=== PATIENT | male | born 1955 | race Caucasian/White ===

== ENCOUNTER 2016-11-20 14:10 | Observation (INO) | payer OTHER ==
[~2016-11-20] VITALS: Ht 180.3 cm; Wt 126.0 kg
[~2016-11-20 14:10] MED LIST: ASPI-973 PO; CITA20TA PO; DICL50TA5 PO; LISI2.5T PO; METF500T4 PO; NAPR250T5 PO
[2016-11-20 14:14] VITALS: BP 144/79; PULSE 84; RESP 18; O2SAT 98
--- NOTE | 2016-11-20 14:24 | ED.REPORT ---
HPI-Chest Pain 40 and Over Date of Service Nov 20, 2016 ED Provider: Douglas Blair Patient is a 61 year old male with a hx of DM and HTN who presents to the ED complaining of epigastric pain onset this morning. His pain radiates to his L chest and LUQ. Associated symptoms include diarrhea this morning. He denies hematemesis, hematochezia, melena, or any other symptoms. He takes metformin, lisinopril, celexa, and 81mg ASA. Pt denies a hx of MO or indigestion. Nursing Notes Stated Complaint: LEFT SIDE PAIN Chief Complaint: Chest Pain Nursing Notes Reviewed: Yes Allergies: Coded Allergies: No Known Allergies (Unverified Allergy, Unknown, 02/04/14) Scheduled Aspirin (Aspirin) 81 Mg Tablet 81 MG PO DAILY Citalopram Hydrobromide (Celexa) 20 Mg Tablet 20 MG PO DAILY Diclofenac Potassium (Diclofenac Potassium) 50 Mg Tablet 50 MG PO BIDWM Lisinopril (Lisinopril) 2.5 Mg Tablet 2.5 MG PO DAILY Metformin (Metformin) 500 Mg Tablet 500 MG PO BID Scheduled PRN Naproxen (Naproxen) 250 Mg Tablet 250 MG PO BID PRN PRN For Pain General Time Seen by MD: 14:23 Chief Complaint Other (Epigastric pain ) Hx Obtained From: Patient Arrived By: Walk-in Sudden in Onset?: Yes Onset Occurred: 5 - 8 hours ago Symptom Duration: Since onset Location: : Epigastric Quality: Aching, Painful Migration/Movement: Reports: Chest to abdomen Severity: Current: Moderate Severity: Maximum: Moderate Recent Healthcare: Recent doctor visit Similar Sx Previous: No Risk Factors )( CAD Risk Stratification Diabetes mellitus HypertensionNo Known CAD, No Smoking Risk factors reviewed )( TAD Risk Stratification HypertensionNo Risk factors reviewed )( PE Risk Stratification No , No , No Previous DVT, No Previous PE Risk factors reviewed Past Medical History 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 Physical Exam Initial Vital Signs Vital Signs (First) Date Time Temp Pulse Resp B/P Pulse Ox O2 Delivery O2 Flow Rate FiO2 11/20/16 14:14 36.4 84 18 144/79 98 Room Air Initial VS: Reviewed, Vital signs normal Head / Eyes: Atraumatic, Normocephalic Neck: Full range of motion Skin: Warm, Dry Neurologic: Alert, Oriented, Nonfocal Psychiatric: Mood/affect normal, Behavior normal, Normal thought content General/Constitutional: Awake, Alert Distress / Hydration: Positive: Distress moderate Respiratory / Chest: Atraumatic, Breath sounds NL, Breath sounds = bilat, No respiratory distress Cardiovascular: Heart rate NL, Regular rhythm, Heart sounds NL 2+ DP pulses Abdomen: Atraumatic, Soft, Non-tender Interpretation & Diagnostics Lab Results Interpretation Result Diagram: 11/20/16 1445 Test 11/20/16 14:45 11/20/16 14:55 White Blood Count 10.5th/mm3 (3.8-10.1) Red Blood Count 4.74mil/mm3 (4.40-5.80) Hemoglobin 12.9g/dL (13.8-17.2) Hematocrit 38.8% (41.0-50.0) Mean Corpuscular Volume 81.9fL (81-100) Mean Corpuscular Hemoglobin 27.2pg (27.0-35.0) Mean Corpuscular Hemoglobin Concent 33.2% (32.0-37.0) Red Cell Distribution Width 13.6% (12.3-15.4) Platelet Count 310bil/L (150-400) Neutrophils (%) (Auto) 68.1% (40-74) Lymphocytes (%) (Auto) 17.8% (14-46) Monocytes (%) (Auto) 9.8% (4-12) Eosinophils (%) (Auto) 3.5% (0-5) Basophils (%) (Auto) 0.5% (0-3) Hold Hussein Top Tube Received (Received) Hold Urine Received (Received) ECG Interpretation ECG Interpretation: Sinus rate 73 RBBB and LAFB Time: 14:31 Interpreted by: ED physician Discharge & Departure Shift Change Sign-Out Patient Care Transferred: Yes Discussed Complaint(s): Yes Laboratory Evaluation: Ordered, not yet done Imaging Studies: Ordered, not yet done Transfer of care to Dr. Martinez at 1500 Primary Impression: Epigastric pain Discharge Condition All VS Reviewed: Yes Condition: Stable Referrals: Osmin Johnson MD (PCP) Care Transferred to: Dr. Martinez Care Transferred at: 15:00 Scribe Attestation Portions of this note were transcribed by Windy Lopez. I, Dr. Blair personally performed the history, physical exam and medical decision-making; I reviewed and confirmed the accuracy of the information in the transcribed note. Signed by: Francisco J Pemberton, 11/20/16 copies to: Osmin Johnson MD, Timothy S DO Nov 20, 2016 14:24 WINDY LOPEZ Nov 20, 2016 14:31
[2016-11-20] MEDS ORDERED: Ondansetron 2 mg/mL 2 mL Inj IVPUSH ONE (14:30)
[2016-11-20] MEDS ORDERED: LidocaineVisc 2%:Antacid 1:1 10 mL Syringe PO ONE (14:30)
[2016-11-20 15:02] LABS: BASOPHILS % (AUTO) 0.5 % (0-3); EOSINOPHILS % (AUTO) 3.5 % (0-5); MONOCYTES % (AUTO) 9.8 % (4-12); Mean Corpuscular Hemoglobin 27.2 pg (27.0-35.0); Mean Corpuscular Volume 81.9 fL (81-100); NEUTROPHILS % (AUTO) 68.1 % (40-74); Platelet Count 310 bil/L (150-400)
[2016-11-20 15:34] LABS: Magnesium 1.8 mg/dL (1.6-2.6)
[2016-11-20 15:38] LABS: TROPONIN T < 0.010 ug/L (0.0-0.011)
--- NOTE | 2016-11-20 15:53 | DRSVH ---
PROCEDURE: X-RAY CHEST ONE VIEW, PORTABLE ([id number]) INDICATIONS: epigastric pain TECHNIQUE: One view of the chest was acquired. COMPARISON: [facility], , CHEST 1VW (PORTABLE), 02/04/2014, 14:03. FINDINGS: Surgical changes and devices: Monitoring leads are seen overlying the chest. Lungs and pleura: An incomplete inspiratory result is noted, causing a crowded appearance to the fadumo g markings. No focal infiltrates are seen. No pneumothorax or significant pleural effusions are see n. Mediastinum: Mediastinal contours appear normal. Heart size is normal. Bones and chest wall: Age-appropriate bony degenerative changes are seen. No suspicious bony lesion s. Overlying soft tissues appear unremarkable. IMPRESSION: Portable chest within normal limits. Dictated by: Quincy Virgen M.D. on 11/20/2016 at 15:50 Approved by: Quincy Virgen M.D. on 11/20/2016 at 15:52
[2016-11-20 17:18] VITALS: BP 141/67; PULSE 77; RESP 17; O2SAT 98
[2016-11-20] MEDS ORDERED: Atropine 1 mg/10 mL (Code) Syringe IVPUSH PRN (19:25)
[2016-11-20] MEDS ORDERED: Senna-Docusate 8.6-50 mg Tablet PO PRN (19:25)
[2016-11-20] MEDS ORDERED: Magnesium Sulf 2 Gm/50mL Water 2 GM in IV Premix 1 EACH IV ONE (19:25)
[2016-11-20] MEDS ORDERED: Polyethylene Glycol (PEG) 17 Gm Powder PO PRN (19:25)
[2016-11-20] MEDS ORDERED: Alum-Mag Hydrox-Simeth 30 mL Suspension PO PRN (19:25)
[2016-11-20] MEDS ORDERED: Ondansetron 2 mg/mL 2 mL Inj IVPUSH PRN (19:25)
[2016-11-20 20:06] LABS: TROPONIN T < 0.010 ug/L (0.0-0.011)
[2016-11-20] MEDS ORDERED: Focus Factor PO (20:24)
[2016-11-20] MEDS ORDERED: MULT-666 PO (20:24)
--- NOTE | 2016-11-20 20:28 | PCM.HPMED ---
Subjective Date of Service Nov 20, 2016 Primary Provider: Admitting Physician: Primary Care Physician: Christopher Hanley DO Attending Physician: Admit Status: From the Emergency Department, 23-Hour Observation Chief Complaint: Chest pain. . 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 The patient reports that around 9 AM this morning he began to experience left-sided chest pain and indigestion. Of note, his PCP recently increased his metformin the day before. He reports that the chest pain is located substernally and does not radiate to his jaw, neck, upper extremities, or back. He has never had this before. He denies nausea, vomiting, shortness of breath, diaphoresis, lightheadedness or dizziness. He does endorse headache. He reports he had one episode of diarrhea today which is not normal for him. He states that he just did not feel well overall. He denies sore throat, cough, shortness of breath, current chest pain, nausea, vomiting, fever, chills, night sweats, dysuria or constipation. He has no other complaints at this time. Vital signs in the ER: Temperature 36.4. Pulse 84. Respiratory rate 18. Blood pressure 144/79. Pulse ox 98% room air. He received GI cocktail 1 and aspirin 243 mg 1 in the ED. PCP is Dr. Christopher Hanley. . Review of Systems: A comprehensive review of systems was conducted with the patient and found to be negative except as above in the History of Present Illness. . Allergies Coded Allergies: No Known Allergies (Unverified Allergy, Unknown, 02/04/14) Home Medications Aspirin 81 mg daily. Citalopram 20 mg daily. Lisinopril 2.5 mg daily. Metformin 1000 mg twice a day ( recently increased yesterday by PCP from 500 mg to 1000 mg twice daily). Multivitamin 1 tablet daily. Focus factor supplement. Recently started on a statin yesterday by PCP unknown dosage. PMH 1. 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 2. Osteoarthritis. 3. Diabetes mellitus type II, non-insulin using. 4. Hypertension. 5. Depression. 6. History of MRSA. . Surgical History 1. Sinus surgery. . Family History Mother who has dementia but is otherwise healthy. Father with CV disease and from an MS in his 80's. He has two sisters. One half sister with fibromyalgia and CVA and another sister with thyroid disease but is otherwise healthy. . Social History Hx Alcohol Use: No Hx Substance Use: No Smoking Status: Former Smoker (1 ppd x 10 years, quit 1996) Additional Information He is x 4 years. He is previously . He has two daughters who are healthy. He is currently retired. 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 . Exam Vital Signs Vital Sign - Last Date Time Temp Pulse Resp B/P Pulse Ox O2 Delivery O2 Flow Rate FiO2 11/20/16 17:18 77 17 141/67 98 Room Air 11/20/16 14:14 36.4 Exam General: Middle-aged gentleman lying in bed and in no acute distress, well- developed, well-nourished, appropriately interactive. HEENT: Normocephalic, atraumatic. External ears without defect. Pupils equal, round, and reactive to light. Anicteric sclerae, moist conjunctivae, and no lid lag. Oropharynx free of erythema and cobble stoning with moist mucosa. Neck: Supple with full range of motion. No jugular venous distension. No bruits. No lymphadenopathy or thyromegaly. Cardiovascular: Regular rate and rhythm without murmurs, rubs, or gallops appreciated Pulmonary: Clear to auscultation bilaterally without crackles, wheezes, or rhonchi. Normal respiratory effort with no use of accessory muscles. Abdomen: Soft, nontender, nondistended, bowel sounds present. No hepatosplenomegaly or masses appreciated. Extremities: No clubbing, cyanosis, or edema. Skin: Normal temperature, turgor, and texture; no rash, ulcers, or subcutaneous nodules appreciated. Neurological: Cranial nerves grossly intact. Normal muscle strength, tone, and bulk. Reflexes, coordination, and sensory function within normal limits. No known gait impairment. Psychiatric: Normal mood and affect. Alert and oriented to person, place, and time. . Lab and Diagnostics Labs Item Value Date Time Calcium Level 9.2 mg/dL 11/20/16 1445 Magnesium Level 1.8 mg/dL 11/20/16 1445 Total Bilirubin 0.5 mg/dL 11/20/16 1445 Aspartate Amino Transf (AST/SGOT) 22 U/L 11/20/16 1445 Alanine Aminotransferase (ALT/SGPT) 22 U/L 11/20/16 1445 Alkaline Phosphatase 52 U/L 11/20/16 1445 Troponin T < 0.010 ug/L 11/20/16 1445 Pro-B-Type Natriuretic Peptide 80.61 pg/mL 11/20/16 1445 Total Protein 6.9 g/dL 11/20/16 1445 Albumin 4.0 g/dL 11/20/16 1445 Lipase 34 U/L 11/20/16 1445 Result Diagram: 11/20/16 1445 11/20/16 144 X-Rays, CTs and MRIs X-RAY CHEST ONE VIEW, PORTABLE IMPRESSION: Portable chest within normal limits. Dictated by: Quincy Virgen M.D. on 11/20/2016 at 15:50 . 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 1. Acute chest pain, present on admission. Active. - The patient presented with left-sided substernal chest pain at rest without radiation, nausea, vomiting, diaphoresis, shortness of breath, lightheadedness or dizziness. - Differential diagnosis includes acute coronary syndrome versus indigestion secondary to metformin versus NSAID induced gastroenteritis. - Cardiac risk factors include: Hypertension, hyperlipidemia, diabetes mellitus type II, obesity, former smoker, and family history. - EKG demonstrated right bundle branch block and left anterior fascicular block without change from previous EKG. - Initial troponin < 0.010. Monitor serial troponin 3. - Chest x-ray did not demonstrate any acute cardiopulmonary process, as above. - Continue aspirin 81 mg daily, lisinopril 2.5 mg daily and atorvastatin 40 mg daily at bedtime. - Fasting lipid panel ordered for tomorrow morning. - Ordered exercise stress test with echocardiogram. Chronic problems: 2. Hypertension, present on admission. Stable. - Continue lisinopril 2.5 mg daily. 3. Hyperlipidemia, present on admission. Stable. - Patient reports that he has recently started on a statin. - Continue atorvastatin 40 daily at bedtime 4. Diabetes mellitus type II, non-insulin using, present on admission. Stable. - Hemoglobin A1c pending. - Order low-dose correctional scale insulin. - Ordered heart healthy/carbohydrate consistent diet. - Held metformin during hospitalization. May restart at time of discharge. 5. Depression, present on admission. Stable. - Continue citalopram 20 mg daily. 6. History of MRSA infection. - Ordered nasal MRSA swab. - If positive for MRSA colonization will need to be treated with mupirocin intranasally twice a day. PRN antiemetics: Zofran and Maalox. PRN bowel regimen: Senna and MiraLAX. PRN analgesics: Tylenol. Patient is admitted under observation status with expected length of stay less than 2 midnights due to severity of presenting symptoms, risk of adverse event, and complexity of treatment plan. . VTE Prophylaxis: Sub-Q Heparin (Unfractionated) Resuscitation Status: DNR/DNI:Do Not Resuscitate/Intubate Attending Statement The patient was seen and examined together with Dr. Marr on 11/20 and I agree with the history, exam and plan as outlined in the note above. copies to: Christopher Hanley Georgia M DO Nov 20, 2016 19:31 Valentino Ortiz MD Nov 20, 2016 21:13
[2016-11-20 20:40] VITALS: BP 158/75; PULSE 81; RESP 18; O2SAT 98
[2016-11-20] MEDS: 0.9% Sodium Chloride 1,000 ML IV SCH (21:14)
--- NOTE | 2016-11-20 21:29 | NUR ---
Admit nurse note Admission assessment completed in the ER. Pt. denies complaints at present. His pain has resolved. NKA verified, med history obtained based on pt. report. Pt. states his A-1C was 10 recently so his metformin was doubled and he began a vegetarian diet yesterday. Pt. high risk for sleep apnea so oximetry is placed. SCD's placed per order. PT. has hx MRSA, untreated, so contact precautions will be initiated and notified to order MRSA swab. Report given to Julieta Rasmussen.
[2016-11-20 21:37] LABS: Creatine Kinase 128 U/L (21-232)
[2016-11-20] MEDS: Sodium Chloride LOK Flush 10 mL Syringe IVFLUSH SCH (23:40)
[2016-11-21] MEDS: Heparin 5,000 Unit/mL Inj SUBQ SCH ×2 (00:21→08:31)
[2016-11-21 00:40] VITALS: BP 128/60; PULSE 80; RESP 18; O2SAT 96
[2016-11-21 02:57] LABS: BASOPHILS % (AUTO) 0.3 % (0-3); EOSINOPHILS % (AUTO) 3.5 % (0-5); MONOCYTES % (AUTO) 12.1 % (4-12); Mean Corpuscular Hemoglobin 27.2 pg (27.0-35.0); NEUTROPHILS % (AUTO) 66.1 % (40-74); Platelet Count 303 bil/L (150-400)
[2016-11-21 03:48] LABS: Creatine Kinase 99 U/L (21-232)
[2016-11-21 04:40] VITALS: BP 135/73; PULSE 81; RESP 16; O2SAT 97
[2016-11-21 04:53] VITALS: PULSE 72
--- NOTE | 2016-11-21 06:34 | NUR ---
Admission Pt arrived to [facility] alert and oriented x 3 without complaints of chest pain/pressure. Pt oriented to room, call light, television, bathroom, and bed controls. NS @ 80ml infusing. Tele: SR 75 IVCD per medical supply technician. VSS. Care continues.
[2016-11-21 08:00] VITALS: PULSE 71
[2016-11-21] MEDS: Sodium Chloride LOK Flush 10 mL Syringe IVFLUSH SCH (08:30)
[2016-11-21] MEDS: 0.9% Sodium Chloride 1,000 ML IV SCH (08:35)
[2016-11-21 08:38] VITALS: BP 148/75; PULSE 73; RESP 19; O2SAT 97
--- NOTE | 2016-11-21 09:45 | NUR ---
Off unit Pt was taken to [facility] for nuc med st. Pt denied any cp and displayed no s/s of distress at time of transfer.
[2016-11-21 12:05] VITALS: BP 154/75; PULSE 78; RESP 18; O2SAT 97
[2016-11-21] MEDS ORDERED: ATOR40TA69 PO (13:20)
--- NOTE | 2016-11-21 13:23 | DRSVH ---
PROCEDURE: 1 DAY TREADMILL STRESS TEST Rest and exercise myocardial perfusion SPECT with gated imaging and ejection fraction RADIOPHARMACEUTICAL: 9.2 mCi Tc-99m tetrafosmin IV at rest and 29.4 mCi Tc-99m tetrafosmin IV at peak exercise. [id number] was performed. INDICATIONS: 61 year-old male with chest pain. The patient has diabetes, hypertension, obesity and hy perlipidemia as risk factors for coronary artery disease. Evaluate myocardial ischemia. TECHNIQUE: Radiopharmaceutical was injected at peak stress test, and also at rest. SPECT images wer e obtained. SPECT myocardial perfusion images were displayed in short axis, horizontal long axis, an d vertical long axis views. Gated images were reviewed using EpiEPQUANT software. COMPARISON: None. CARDIAC STRESS: A standard Oliverio treadmill exercise tolerance test was performed by the patient under the supervision of an attending staff. The patient exercised for 3 minutes and 0 seconds; functional aerobic impair ment (OLGA LIDIA) is +58 %. Hemodynamic data: There is rapid heart rate and hypertensive response to exercise stress. Patient a chieved 92% of maximum predicted heart rate at peak exercise. Symptoms: Patient denied chest pain during exercise. EKG: RBBB and LAFB at baseline. No diagnostic EKG changes of ischemia; occasional PVCs. FINDINGS: Raw data: There is good myocardial labeling by radiotracer. No significant motion artifacts. Left ventricle function: Gated images demonstrate normal left ventricle wall thickening. No segment al wall motion abnormality. No transient ischemic dilation. The left ventricle end-diastolic volume is normal. Left ventricle stress ejection fraction is 59%; normal values are above 45%. Myocardial perfusion: There is normal distribution of activity in the left and right ventricular allen cardium. There is diaphragmatic attenuation artifact in the inferior wall. IMPRESSION: 1. Normal myocardial perfusion images. 2. Normal left ventricular volume and systolic function. 3. Severely limited exercise capacity. Baseline abnormal EKG. No chest pain or diagnostic EKG changes for ischemia. PQRS ATTESTATIONS: Measure 322 - Is this imaging test primarily performed on a low-risk surgery patient for preoperative evaluation within 30 days preceding their low-risk non-cardiac surgery? Low-risk surgery is defined as cardiac or myocardial infarction less than 1%, including (but not limited to) endoscopic pr ocedures, superficial procedures, cataract surgery, and excisional breast surgery: Answer: No Measure 323 - Is this imaging test performed primarily for the monitoring of an asymptomatic patient who had percutaneous coronary intervention on the visit date or within 2 years of the visit date? An swer: No Measure 324 - Is this imaging test performed primarily for the initial detection and risk assessment on an asymptomatic, low coronary heart disease patient? Low CHD risk definition = clinicians should consider the maximum number of available patient factors used to estimate risk based on [place] (A TP III criteria), typically age, gender, diabetes, smoking status, and use of blood pressure medicati on, and integrate age appropriate estimates for missing elements, such as LDL or standard blood press ure. Answer: No Dictated by: Judy Kevin M.D. on 11/21/2016 at 13:16 Approved by: Judy Kevin M.D. on 11/21/2016 at 13:21
--- NOTE | 2016-11-21 13:24 | PCM.DIMED ---
Discharge Instructions Date of Service Nov 21, 2016 Dates of Hospitalization Nov 20, 2016 at 20:15 Discharge Diagnosis Discharge Diagnosis acute dx chest pain, non-anginal chronic dx HTN DM HLD depression, hx of MRSA Diet Discharge Diet: Low fat, Low Sodium, Heart Healthy Activity Discharge Activity: No restrictions Call your provider Call your provider for: Chest pain Patient Instructions Patient Instructions You were hospitalized with chest pain, concerning for heart attack. Serial blood test, EKG, stress test didn't show any signs of heart attack. It's possible it's related to your GI tract or muscle strain. Please note that we noted that your cholesterol level is high, strongly recommended to take cholesterol pill. "statin", started 40mg of Lipitor daily Follow-up plan Please follow up with your primary doctor in one week. Follow-up Provider: Christopher Hanley Jongwoo MD Nov 21, 2016 13:24
--- NOTE | 2016-11-21 15:11 | NUR ---
Social Work: Initial Assessment / Multidisciplinary Rounds / Discharge Data: See initial assessment. Patient is a 61 year old male who is on day 1 of hospitalization for chest pain per H&P. Patient's insurance is [facility] and his PCP is Christopher Hanley DO. EMR reviewed. SW visited with patient and to discuss discharge planning. SW role explained. Patient states that he lives with his in [place]. Patient considers his to be his main support person. Patient denies having a DPOA or AD at this time. states that they have already received AD information. Patient has requested a financial assistance application. SW has provided this application to patient. Patient confirms that he is I at baseline and is able to perform all ADLs and care needs. Patient confirms that he drives via POV. Patient denies having a hx of home health services or SNF. 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 Upon discharge, patient states that his will assist with transportation home. SW provided patient with a discharge planning checklist booklet and encouraged to call with any questions or concerns. Phone number provided. Patient was discussed in morning rounds. No concerns were noted by MD or staff during rounds. Patient has been deemed medically stable for discharge today by MD. MD has placed discharge orders. Patient has no additional needs at this time. Assessment: Patient will discharge home. Plan: Patient has been deemed medically stable for discharge today. Transportation will be provided by spouse. Patient has no additional needs at this time. LINDSAY Gutierrez Addendum: 11/21/16 at 1528 by HELENE RAZA Amended: Links added.
--- NOTE | 2016-11-21 15:35 | NUR ---
Discharge Pt d/c home as ordered. Removed IV, catheter intact, no bleeding. Provided pt with d/c paperwork and instructions, including prescriptions and carenotes. Pt voiced no questions. Declined w/c transport. Ambulated off [place] independently, home in private vehicle with family.
--- NOTE | 2016-11-22 12:06 | DRSVH ---
[facility] [address] [place] [address] Echocardiogram Report Name: GUTIERREZ ALLISON HStudy Date: 11/21/2016 Height: 71 in Hospital Exam Location: [facility] Weight: 278 lb Gender: Male BSA: 2.4 m2 : 1955 Age: 61 yrs BP: 148/75 mmHg Reason For Study: ACS Ordering Physician: Sriram Samayoa Performed By: Brody Mckinley Referring Physician: Vic SABA Interpretation Summary Left ventricular wall thickness is mildly increased. Left ventricular systolic function is normal without focal wall motion abnormalities. The ejection fraction is estimated to be 55-60%. No changes since prior study. Assessment of diastolic parameters indicates a relaxation abnormality of the left ventricle, consistent with normal filling pressures. The right ventricle is normal in size and function. Pulmonary artery pressures cannot be estimated because of the lack of a measurable TR jet velocity. The left atrium is mildly dilated. Right atrial size is normal. There is no significant valvular heart disease. The ascending aorta is mildly enlarged. Procedure: A two-dimensional transthoracic echocardiogram with color flow and Doppler was performed. The study quality was technically adequate. Comparison is made with the echocardiogram of 02/06/14. A contrast injection of Definity was performed to improve assessment of LV function. The patient was in normal sinus rhythm during the exam. Left Ventricle: The left ventricle is normal in size. Left ventricular wall thickness is mildly increased. Trabeculae near apex are visualized. No thrombus is observed. Left ventricular systolic function is normal without focal wall motion abnormalities. The ejection fraction is estimated to be 55- 60%. Assessment of diastolic parameters indicates a relaxation abnormality of the left ventricle, consistent with normal filling pressures. Right Ventricle: The right ventricle is normal in size and function. Atria: The left atrium is mildly dilated. Right atrial size is normal. The interatrial septum is intact with no evidence for an atrial septal defect. Mitral Valve: The mitral valve leaflets are mildly calcified. There is trace mitral regurgitation. Aortic Valve: The aortic valve is normal in structure and function. The aortic valve is trileaflet. The aortic valve opens well. No aortic regurgitation is present. Tricuspid Valve: The tricuspid valve is normal in structure and function. There is a trace or physiologic amount of tricuspid regurgitation. Pulmonary artery pressures cannot be estimated because of the lack of a measurable TR jet velocity. Pulmonic Valve: The pulmonic valve is normal in structure and function. There is trace pulmonic regurgitation. There is no significant valvular heart disease. Great Vessels: The aortic root is normal size. The ascending aorta is mildly enlarged. The pulmonary artery is normal size. The IVC is of normal diameter and collapses greater than 50% with a sniff. This suggests a low right atrial pressure of 3 mm Hg. Pericardium/ Pleura There is no pericardial effusion. There is no pleural effusion. MMode/2D Measurements & Calculations LVIDd: 5.5 cm LA dimension: 4.6 cm LVIDs: 4.4 cm FS: 21.2 % LA A2 area: 25.9 cm EPSS: 1.1 cm LA A4 area: 23.5 cm IVSd: 1.1 cm LA length (vol): 5.5 cm LVPWd: 1.2 cm LA vol: 93.5 ml LA vol index: 38.6 ml/m IVC diam: 1.2 cm RA long axis: 5.9 cm Ao root diam: 3.4 cm RA area: 22.7 cm Aortic Jxn: 2.9 cm RA vol: 74.2 ml asc Aorta Diam: 3.7 cm RA : 30.6 ml/m2 Ao Arch Diam (Prox Trans): 2.7 cm LV moore. diameter/BSA (cm/m^2): 2.3 LV sys. diameter/BSA (cm/m^2): 1.8 RVD1 (basal): 3.9 cm RVD2 (mid): 4.0 cm Doppler Measurements & Calculations Ao V2 max: 130.9 cm/sec MV E max jonathan: 69.9 cm/sec Ao max P.9 mmHg MV A max jonathan: 88.2 cm/sec Ao mean P.1 mmHg MV E/A: 0.79 PA V2 max: 69.4 cm/sec Med Peak E' Jonathan: 6.1 cm/sec PA mean P.1 mmHg E/E' med: 11.5 PA Accel Time: 0.09 sec Lat Peak E' Jonathan: 7.7 cm/sec E/E' lat: 9.1 E/e' average: 10.3 Pulm A Revs Dur: 0.08 sec MV dec time: 0.29 sec Ao V2 mean: 98.7 cm/sec Ao V2 VTI: 27.4 cm PA V2 mean: 50.9 cm/sec PA pr(Accel): 36.6 mmHg Reading Physician:PACO
--- NOTE | 2016-11-22 14:44 | PCM.DC.MED ---
Discharge Summary Date of Service Nov 21, 2016 Dates of Hospitalization Date of Hospital Admission Nov 20, 2016 at 20:15 Date of Discharge: Nov 21, 2016 Providers: Admitting Physician: Valentino Ortiz MD Primary Care Physician: Christopher Hanley DO Attending Physician: Ryder Garcia MD Diagnosis at Time of Discharge Diagnosis at Time of Discharge acute dx chest pain, non-anginal chronic dx HTN DM HLD depression, hx of MRSA Procedures XRay, CTs & MRIs X-RAY CHEST ONE VIEW, PORTABLE IMPRESSION: Portable chest within normal limits. Dictated by: Quincy Virgen M.D. on 11/20/2016 at 15:50 . Brief History History of present illness obtained by on 11/20 Jarett Carrasco is a 61-year-old male with a past medical history significant for hypertension, hyperlipidemia, obesity, diabetes mellitus type II, non- insulin using, and surveyed [employer] hemangioma who presents to [facility] emergency Department for chest pain and indigestion. The patient reports that around 9 AM this morning he began to experience left-sided chest pain and indigestion. Of note, his PCP recently increased his metformin the day before. He reports that the chest pain is located substernally and does not radiate to his jaw, neck, upper extremities, or back. He has never had this before. He denies nausea, vomiting, shortness of breath, diaphoresis, lightheadedness or dizziness. He does endorse headache. He reports he had one episode of diarrhea today which is not normal for him. He states that he just did not feel well overall. He denies sore throat, cough, shortness of breath, current chest pain, nausea, vomiting, fever, chills, night sweats, dysuria or constipation. He has no other complaints at this time. Vital signs in the ER: Temperature 36.4. Pulse 84. Respiratory rate 18. Blood pressure 144/79. Pulse ox 98% room air. He received GI cocktail 1 and aspirin 243 mg 1 in the ED. PCP is Dr. Christopher Hanley. . Hospital Course Patient was admitted to rule out acute coronary syndrome. Patient had negative serial troponins, EKG did not show any ischemic changes. Patient underwent stress test, didn't show any perfusion defect. Patient remained asymptomatic, given negative ischemic workup is, deemed safe for discharge. Given patient's elevated LDL leve with DM, high density study was recommended upon discharge. Jarett Carrasco is a 61-year-old male with a past medical history significant for hypertension, hyperlipidemia, obesity, diabetes mellitus type II, non- insulin using, and surveyed [employer] hemangioma who presents to [facility] emergency Department for chest pain and indigestion. 1. Acute chest pain, present on admission. Active. - The patient presented with left-sided substernal chest pain at rest without radiation, nausea, vomiting, diaphoresis, shortness of breath, lightheadedness or dizziness. - Differential diagnosis includes acute coronary syndrome versus indigestion secondary to metformin versus NSAID induced gastroenteritis. - Cardiac risk factors include: Hypertension, hyperlipidemia, diabetes mellitus type II, obesity, former smoker, and family history. - EKG demonstrated right bundle branch block and left anterior fascicular block without change from previous EKG. - Initial troponin < 0.010. Monitor serial troponin 3. - Chest x-ray did not demonstrate any acute cardiopulmonary process, as above. - Continue aspirin 81 mg daily, lisinopril 2.5 mg daily and atorvastatin 40 mg daily at bedtime. - Fasting lipid panel ordered for tomorrow morning. - Ordered exercise stress test with echocardiogram. Chronic problems: 2. Hypertension, present on admission. Stable. - Continue lisinopril 2.5 mg daily. 3. Hyperlipidemia, present on admission. Stable. - Patient reports that he has recently started on a statin. - Continue atorvastatin 40 daily at bedtime 4. Diabetes mellitus type II, non-insulin using, present on admission. Stable. - Hemoglobin A1c pending. - Order low-dose correctional scale insulin. - Ordered heart healthy/carbohydrate consistent diet. - Held metformin during hospitalization. May restart at time of discharge. 5. Depression, present on admission. Stable. - Continue citalopram 20 mg daily. 6. History of MRSA infection. - Ordered nasal MRSA swab. - If positive for MRSA colonization will need to be treated with mupirocin intranasally twice a day. PRN antiemetics: Zofran and Maalox. PRN bowel regimen: Senna and MiraLAX. PRN analgesics: Tylenol. Patient is admitted under observation status with expected length of stay less than 2 midnights due to severity of presenting symptoms, risk of adverse event, and complexity of treatment plan. . Exam Vital Signs (Last) Date Time Temp Pulse Resp B/P Pulse Ox O2 Delivery O2 Flow Rate FiO2 11/21/16 12:05 36.5 78 18 154/75 97 Room Air Exam Patient was examined on the day of discharge Test 11/20/16 14:45 11/20/16 14:55 11/20/16 19:26 11/21/16 02:42 Hemoglobin A1c 9.7% (4.8-5.6) Total Bilirubin 0.5mg/dL (0.0-1.2) Aspartate Amino Transf (AST/SGOT) 22U/L (0-50) Alanine Aminotransferase (ALT/SGPT) 22U/L (0-44) Alkaline Phosphatase 52U/L (25-160) Pro-B-Type Natriuretic Peptide 80.61pg/mL (0-210) Total Protein 6.9g/dL (6.4-8.4) Albumin 4.0g/dL (3.4-5.0) Lipase 34U/L (13-60) Hold Hussein Top Tube Received (Received) Hold Urine Received (Received) Thyroid Stimulating Hormone (TSH) 1.520uIU/mL (0.450-4.500) White Blood Count 10.5th/mm3 (3.8-10.1) Red Blood Count 4.38mil/mm3 (4.40-5.80) Hemoglobin 11.9g/dL (13.8-17.2) Hematocrit 35.9% (41.0-50.0) Mean Corpuscular Volume 82.0fL (81-100) Mean Corpuscular Hemoglobin 27.2pg (27.0-35.0) Mean Corpuscular Hemoglobin Concent 33.1% (32.0-37.0) Red Cell Distribution Width 13.7% (12.3-15.4) Platelet Count 303bil/L (150-400) Neutrophils (%) (Auto) 66.1% (40-74) Lymphocytes (%) (Auto) 17.8% (14-46) Monocytes (%) (Auto) 12.1% (4-12) Eosinophils (%) (Auto) 3.5% (0-5) Basophils (%) (Auto) 0.3% (0-3) Sodium Level 138mEq/L (134-144) Potassium Level 4.1mEq/L (3.5-5.2) Chloride Level 102mEq/L (97-108) Carbon Dioxide Level 22mmol/L (18-29) Blood Urea Nitrogen 11mg/dL (8-27) Creatinine 0.61mg/dL (0.76-1.27) Estimat Glomerular Filtration Rate 142mL/min (>59) Glucose Level 193mg/dL (60-99) Calcium Level 8.9mg/dL (8.5-10.1) Magnesium Level 2.0mg/dL (1.6-2.6) Total Creatine Kinase 99U/L (21-232) Creatine Kinase MB 3.4ng/mL (0.0-10.4) Creatine Kinase MB % % (0.0-5.0) Troponin T 0.010ug/L (0.0-0.011) Triglycerides Level 126mg/dL (0-149) Cholesterol Level 191mg/dL (100-199) LDL Cholesterol, Calculated 130.800mg/dL (0-99) VLDL Cholesterol 25.200mg/dL HDL Cholesterol 35mg/dL (>39) Cholesterol/HDL Ratio 5.46 (0.0-4.4) Discharge Medications Discharge Medications ([Focus Factor]) 1 TAB PO BID (Reported) Aspirin (Aspirin) 81 Mg Tablet 81 MG PO DAILY (Reported) Atorvastatin Calcium (Atorvastatin Calcium) 40 Mg Tablet 40 MG PO HS Prescribed by: RYDER GARCIA MD Citalopram Hydrobromide (Celexa) 20 Mg Tablet 20 MG PO DAILY Prescribed by: JENNIE KNIGHT DO Lisinopril (Lisinopril) 2.5 Mg Tablet 2.5 MG PO DAILY (Reported) Metformin (Metformin) 500 Mg Tablet 1,000 MG PO BID (Reported) Multivitamin (Once Daily) 1 Each Tablet 1 EACH PO DAILY (Reported) Followup Plan Disposition: Home Follow-up plan Please follow up with your primary doctor in one week. Discharge Diet: Low fat, Low Sodium, Heart Healthy Discharge Activity: No restrictions Patient Instructions You were hospitalized with chest pain, concerning for heart attack. Serial blood test, EKG, stress test didn't show any signs of heart attack. It's possible it's related to your GI tract or muscle strain. Please note that we noted that your cholesterol level is high, strongly recommended to take cholesterol pill. "statin", started 40mg of Lipitor daily Follow-up Provider: Christopher Hanley DO Time spent 65 minutes Ryder Garcia MD Nov 22, 2016 14:44
== END 2016-11-21 15:38 | disposition home or self-care (01) ==
LOC: SED 14:10 → MPC 20:15
PROVIDERS: ADMIT Hospitalist; ATTEND Hospitalist
DX: R07.89 Other chest pain (principal); I10 Essential (primary) hypertension; E78.5 Hyperlipidemia, unspecified; E11.9 Type 2 diabetes mellitus without complications; F32.9 Major depressive disorder, single episode, unspecified; R10.13 Epigastric pain; M19.90 Unspecified osteoarthritis, unspecified site; D18.00 Hemangioma unspecified site; Z79.84 Long term (current) use of oral hypoglycemic drugs; Z79.82 Long term (current) use of aspirin; Z86.14 Personal history of Methicillin resistant Staphylococcus aureus infection; Z87.891 Personal history of nicotine dependence
CPT/HCPCS: 36415; 71010; 78452; 80048; 80053; 80061; 82550; 82553; 82948; 83036; 83690; 83735; 83880; 84443; 84484; 85025; 87641; 93005; 93017; 96372; 96374; 99285; A9502; C8929; G0378; J1644; J7030; Q9957